=== PATIENT | male | born 1990 | race African-American/Black ===

== ENCOUNTER 2022-09-29 22:08 | Outpatient (CLI) | payer SELFPAY | END 2022-09-29 23:59 | disposition EMS.NT | LOC: EMS 22:08 | DX: R56.9 Unspecified convulsions (principal) ==

== ENCOUNTER 2023-11-29 00:19 | Outpatient (CLI) | payer SELFPAY | END 2023-11-29 23:59 | disposition EMS.NT | LOC: EMS 00:19 | DX: R56.9 Unspecified convulsions (principal); Z91.138 Patient's unintentional underdosing of medication regimen for other reason ==

== ENCOUNTER 2025-04-16 15:59 | Observation (INO) ==
--- OUTSIDE RECORDS SUMMARY | 2025-04-16 17:01 | EXTERNAL MEDICAL SUMMARY RPT | Continuity of Care Document ---
Author Organization [facility] Address [address] [place] [id number] Phone Care Team Providers Care Community Advocate Name Role Phone Unavailable Unavailable [email or web address] Ashish Lomas Unavailable Unavailable Allergies and Intolerances date description facility reaction severity 2023-10-15 10:00 No Known Drug Allergies [facility] ( no reaction) (no severity) Problems date description facility 2025-02-22 00:00 Atypical chest pain [facility] 2025-02-22 14:45 Epilepsy, unspecifie d, not intractable, without status epile [facility] Procedures date description facility 2025-02-22 00:00 X-ray of chest, single [facility] Results/Labs test date facility value unit notes Result panel 1 White blood cell count 2025-02-22 15:15:07 [facility] 3 .4 X10^3/uL (missing) Result panel 2 Automated neutrophil % 2025-02-22 15:15:07 [facility] 5 3.5 % (missing) Result panel 3 Automated lymphocyte % 2025-02-22 15:15:07 [facility] 3 7.9 % (missing) Result panel 4 Automated monocyte % 2025-02-22 15:15:07 [facility] 7.2 % (missing) Result panel 5 Automated eosinophil % 2025-02-22 15:15:07 [facility] 0 .5 % (missing) Result panel 6 Automated basophil % 2025-02-22 15:15:07 [facility] 0.9 % (missing) Result panel 7 Absolute neutrophil count 2025-02-22 15:15:07 [facility] l 1800 /uL (missing) Result panel 8 Absolute lymphocyte count 2025-02-22 15:15:07 [facility] l 1300 /uL (missing) Result panel 9 Automated blood monocyte count 2025-02-22 15:15:07 [facility] 200 /uL (missing) Result panel 10 Automated eosinophil count 2025-02-22 15:15:07 [facility] 0 /uL (missing) Result panel 11 Automated basophil count 2025-02-22 15:15:07 [facility] 0 /uL (missing) Result panel 12 Red blood cell count 2025-02-22 15:15:07 [facility] 5.5 8 X10^6/uL (missing) Result panel 13 Creatine kinase [Enzymatic activity/volume] in Serum or Plasma 2025-02-22 15:15:07 [facility] 619 U/L (miss ing) Result panel 14 Natriuretic peptide.B prohormone N-Terminal [Mass/volume] in Serum or Plasma 2025-02-22 15:15:07 [facility] < 20 pg/mL (missing) (missing) Result panel 15 Sodium [Moles/volume] in Serum or Plasma 2025-02-22 15:15:07 [facility] 135 mmol/L ([facility]) Result panel 16 Potassium [Moles/volume] in Serum or Plasma 2025-02-22 15:15:07 [facility] 4.0 mmol/L ([facility]) Result panel 17 Chloride [Moles/volume] in Serum or Plasma 2025-02-22 15:15:07 [facility] 99 mmol/L ([facility]) Result panel 18 Carbon dioxide, total [Moles/volume] in Serum or Plasma 2025-02-22 15:15:07 [facility] 28 mmol/L ([facility]) Result panel 19 Urea nitrogen [Mass/volume] in Serum or Plasma 2025-02-22 15:15:07 [facility] 10 mg/dL ([facility]) Result panel 20 Creatinine [Mass/volume] in Serum or Plasma 2025-02-22 15:15:07 [facility] 0.60 mg/dL ([facility]) Result panel 21 Glomerular filtration rate (GFR) estimation 2025-02-22 15:15:07 [facility] > 60 mL/min (missing) (missing) Result panel 22 Hemoglobin 2025-02-22 15:15:07 [facility] 15.4 g/d L (missing) Result panel 23 BUN/creatinine ratio 2025-02-22 15:15:07 [facility] 16. 7 (missing) (missing) Result panel 24 Glucose [Mass/volume] in Serum or Plasma 2025-02-22 15:15:07 [facility] 150 mg/dL ([facility]) Result panel 25 Calcium [Mass/volume] in Serum or Plasma 2025-02-22 15:15:07 [facility] 9.0 mg/dL [facility]) Result panel 26 Magnesium [Mass/volume] in Serum or Plasma 2025-02-22 15:15:07 [facility] 1.9 mg/dL ([facility]) Result panel 27 Bilirubin.total [Mass/volume ] in Serum or Plasma 2025-02-22 15:15:07 [facility] 0.4 mg/dL (missing) Result panel 28 Aspartate aminotransferase [Enzymatic activity/volume] in Serum or Plasma 2025-02-22 15:15:07 [facility] 62 IU/L ([facility]) Result panel 29 Alanine aminotransferase [Enzymatic activity/volume] in Serum or Plasma 2025-02-22 15:15:07 [facility] 75 IU/L ([facility]) Result panel 30 Alkaline phosphatase [Enzyma tic activity/volume] in Serum or Plasma 2025-02-22 15:15:07 [facility] 83 U/L (miss ing) Result panel 31 Protein total ser/plas 2025-02-22 15:15:07 [facility] 7 .7 g/dL (missing) Result panel 32 Albumin [Mass/volume] in Ser um or Plasma 2025-02-22 15:15:07 [facility] 4.8 g/dL (miss ing) Result panel 33 Hematocrit 2025-02-22 15:15:07 [facility] 45.7 % (missing) Result panel 34 Globulin [Mass/volume] in Serum by calculation 2025-02-22 15:15:07 [facility] 2.9 g/dL (missing) Result panel 35 Albumin/Globulin [Mass Ratio] in Serum or Plasma 2025-02-22 15:15:07 [facility] 1.7 (miss ing) (missing) Result panel 36 Lipase [Enzymatic activity/volume] in Serum or Plasma 2025-02-22 15:15:07 [facility] 38 U/L (miss ing) Result panel 37 MCV (mean corpuscular volume ) determination 2025-02-22 15:15:07 [facility] 81.9 fL (mis sing) Result panel 38 Mean corpuscular hemoglobin (MCH) determination 2025-02-22 15:15:07 [facility] 27.6 PG (missing) Result panel 39 Mean corpuscular hemoglobin concentration (MCHC) determination 2025-02-22 15:15:07 [facility] 33.7 % (mis sing) Result panel 40 Red cell distribution width determination 2025-02-22 15:15:07 [facility] 14.9 % (mis sing) Result panel 41 Platelet count 2025-02-22 15:15:07 [facility] 239 X10^3/uL (missing) Result panel 42 X-ray report 2025-02-22 15:21 [facility] (missing) (mis sing) (missing) Result panel 43 Basophils Absolute Auto 2025-02-22 15:44 [facility] 0 /ul (missing) Eosinophils Absolute Auto 2025-02-22 15:44 [facility] 0 /ul (missing) Eosinophils Percent Auto 2025-02-22 15:[address] [place] [address] 0. 5 % (missing) Basophils Percent Auto 2025-02-22 15:[address] [place] [address] 0.9 % (missing) Lymphocytes Absolute Auto 2025-02-22 15:[address] [place] [address] 1 300 /ul (missing) Red Cell Distribution Width 2025-02-22 15:[address] [place] [address] 14.9 % (missing) Hemoglobin 2025-02-22 15:[address] [place] [address] 15.4 g/dl (missing) Neutrophils Absolute Auto 2025-02-22 15:[address] [place] [address] 1 800 /ul (missing) Monocytes Absolute Auto 2025-02-22 15:[address] [place] [address] 200 /ul (missing) Platelet Count 2025-02-22 15:[address] [place] [address] 239 x1 0 3/ul (missing) Mean Corpuscular Hemoglobin 2025-02-22 15:[address] [place] [address] 27.6 pg (missing) White Blood Cell Count 2025-02-22 15:[address] [place] [address] 3.4 x10 3/ul (missing) Mean Corpuscular HGB Conc 2025-02-22 15:44 [facility] 3 3.7 % (missing) Lymphocytes Percent Auto 2025-02-22 15:[address] [place] [address] 37 .9 % (missing) Hematocrit 2025-02-22 15:[address] [place] [address] 45.7 % (missing) Red Blood Cell Count 2025-02-22 15:[address] [place] [address] 5.58 x10 6/ul (missing) Neutrophils Percent Auto 2025-02-22 15:[address] [place] [address] 53 .5 % (missing) Monocytes Percent Auto 2025-02-22 15:[address] [place] [address] 7.2 % (missing) Mean Corpuscular Volume 2025-02-22 15:44 [facility] 81. 9 fl (missing) Result panel 44 Estimated Glomerular Filt Rate 2025-02-22 15:55 [facility] > 60 ml/min Reported eGFR is based the CKD-EPI 2020 equation that does not use a race coefficient. An eGFR below 60 mL/min/1.73m2 suggests that some kidney damage has occurred, and indicative of chronic kidney disease if persisting greater than 3 months. An eGFR less than 15 is indicative of kidney failure. Bilirubin Total 2025-02-22 15:55 [facility] 0.4 mg/dl (missing) Creatinine 2025-02-22 15:55 [facility] 0.60 mg/dl (missing) Albumin Globulin Ratio 2025-02-22 15:55 [facility] 1.7 (missing) (missing) Magnesium 2025-02-22 15:55 [facility] 1.9 mg/dl Physician Instructions if pt has history of CHF Blood Urea Nitrogen 2025-02-22 15:55 [facility] 10 mg/dl (missing) Sodium 2025-02-22 15:55 [facility] 135 mmol/l Physician Instructions if pt has history of CHF Glucose 2025-02-22 15:55 [facility] 150 mg/dl (missing) BUN Creatinine Ratio 2025-02-22 15:55 [facility] 16.7 (missing) (missing) Globulin 2025-02-22 15:55 [facility] 2.9 g/dl (missing) Carbon Dioxide 2025-02-22 15:55 [facility] 28 mmol/l (missing) Lipase 2025-02-22 15:55 [facility] 38 u/l Physician Instructions if pt has history of CHF Potassium 2025-02-22 15:55 [facility] 4.0 mmol/l (missing) Albumin 2025-02-22 15:55 [facility] 4.8 g/dl (missing) Creatine Kinase 2025-02-22 15:55 [facility] 619 u/l Physician Instructions if pt has history of CHF Aspartate Aminotransferase 2025-02-22 15:55 [facility] 62 iu/l (missing) Total Protein 2025-02-22 15:55 [facility] 7.7 g/dl (missing) Alanine Aminotransferase 2025-02-22 15:55 [facility] 75 iu/l (missing) Alkaline Phosphatase 2025-02-22 15:55 [facility] 83 u/l (missing) Calcium 2025-02-22 15:55 [facility] 9.0 mg/dl (missing) Chloride 2025-02-22 15:55 [facility] 99 mmol/l (missing) Result panel 45 Estimated Glomerular Filt Rate 2025-02-22 16:[address] [place] [address] > 60 ml/min Reported eGFR is based the CKD-EPI 2020 equation that does not use a race coefficient. An eGFR below 60 mL/min/1.73m2 suggests that some kidney damage has occurred, and indicative of chronic kidney disease if persisting greater than 3 months. An eGFR less than 15 is indicative of kidney failure. Troponin I 2025-02-22 16:[address] [place] [address] < 0.012 ng/ml Ortho Troponin-I Recommended Upper Reference Range & Cutoff The 99th Percentile URL: 0.034 ng/mL AMI Diagnostic Cutoff: 0.120 ng/mL NT-proBNP (BNP-Adult 18+) 2025-02-22 16:[address] [place] [address] < 20 pg/ml Physician Instructions if pt has history of CHF The following cut-points have been suggested for the use of proBNP for the diagnostic evaluation of heart failure (HF) in patients with acute dyspnea: Modality Age in Years Optimal Cut-Off -------- Heart Failure Unlikely: Exclusion Age Independent 300 pg/mL Heart Failure Likely: Diagnostic <50 450 pg/mL 50-75 900 pg/mL >75 1800 pg/mL The 300 pg/mL age-independent rule-out cutoff can be used to identify ED patients in whom HF (heart failuire) is unlikely and who need further investigations for non-cardiac causes of dyspnea. The natriuretic peptides values increase with age, therefore, applying age-dependent rule-in cutoffs (450, 900, and 1800 pg/mL) increases the specificity and positive predictive value for diagnosing patients in whom HF is likely. As mild natriuretic peptides elevations can be caused by non-HF conditions, VITROS NT-proBNP II test results between the exclusion and the diagnosis cutoffs should be considered in the context of the clinical presentation and physical examination in order to correctly identify or exclude HF. Bilirubin Total 2025-02-22 16:[address] [place] [address] 0.4 mg/dl (missing) Creatinine 2025-02-[address] [place] [address] 0.60 mg/dl (missing) Albumin Globulin Ratio 2025-02-22 16:[address] [place] [address] 1.7 (missing) (missing) Magnesium 2025-02-22 16:[address] [place] [address] 1.9 mg/dl Physician Instructions if pt has history of CHF Blood Urea Nitrogen 2025-02-22 16:[address] [place] [address] 10 mg/dl (missing) Sodium 2025-02-22 16:[address] [place] [address] 135 mmol/l Physician Instructions if pt has history of CHF Glucose 2025-02-22 16:[address] [place] [address] 150 mg/dl (missing) BUN Creatinine Ratio 2025-02-22 16:[address] [place] [address] 16.7 (missing) (missing) Globulin 2025-02-22 16:[address] [place] [address] 2.9 g/dl (missing) Carbon Dioxide 2025-02-22 16:[address] [place] [address] 28 mmol/l (missing) Lipase 2025-02-22 :[address] [place] [address] 38 u/l Physician Instructions if pt has history of CHF Potassium 2025-02-22 16:[address] [place] [address] 4.0 mmol/l (missing) Albumin 2025-02-22 16:[address] [place] [address] 4.8 g/dl (missing) Creatine Kinase 2025-02-22 16:[address] [place] [address] 619 u/l Physician Instructions if pt has history of CHF Aspartate Aminotransferase 2025-02-22 16:[address] [place] [address] 62 iu/l (missing) Total Protein 2025-02-22 16:[address] [place] [address] 7.7 g/dl (missing) Alanine Aminotransferase 2025-02-22 16:[address] [place] [address] 75 iu/l (missing) Alkaline Phosphatase 2025-02-22 16:[address] [place] [address] 83 u/l (missing) Calcium 2025-02-22 16:[address] [place] [address] 9.0 mg/dl (missing) Chloride 2025-02-22 16:[address] [place] [address] 99 mmol/l (missing) Result panel 46 Troponin I.cardiac [Mass/volume] in Serum or Plasma 2025-02-22 19:50:07 [facility] < 0.012 ng/mL (missing) (missing) Result panel 47 Troponin I 2025-02-22 20:24 [facility] < 0.012 ng/ml Ortho Troponin-I Recommended Upper Reference Range & Cutoff The 99th Percentile URL: 0.034 ng/mL AMI Diagnostic Cutoff: 0.120 ng/mL Social History date description facility 2025-02-22 00:00 Never smoked tobacco ([facility] Vital Signs date measurement value units 2025-02-22 00:00 BMI 35.5 kg/m2 2025-02-22 00:00 BP_diastolic 76 mmHg 2025-02-22 00:00 BP_systolic 136 mmHg 2025-02-22 00:00 heart_rate 70 /min 2025-02-22 00:00 height_metric 195.58 cm 2025-02-22 00:00 o2_saturation 98 % 2025-02-22 00:00 respiration_rate 16 /min 2025-02-22 00:00 temperature_standard 98.3 F 2025-02-22 00:00 weight_metric 136.07 kg
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
[2025-04-16 17:34] LABS: HCT - HEMATOCRIT 49.9 % (42.0-52.0); HGB - HEMOGLOBIN 16.7 g/dL (14.0-18.0); MEAN PLATELET VOLUME 8.9 fL (7.4-11.4); NRBC ABSOLUTE COUNT (AUTO) 0.00 x10^3/uL; NUCLEATED RED BLOOD CELLS AUTO 0.0 /100WBC; PLT - PLATELET COUNT 257 10^3/uL (130-450); RED CELL DISTRIBUTION WIDTH 13.2 % (12.0-15.0)
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
[2025-04-16 18:01] LABS: ALT ALANINE AMINOTRANSFERASE 43.0 IU/L (10-60); AST ASPARTATE AMINOTRANSFERASE 25.0 IU/L (10-42); BUN - BLOOD UREA NITROGEN 8.0 mg/dL (6-20); CARBON DIOXIDE - CO2 33.0 mmol/L (21-32); CREATININE 0.7 mg/dL (0.6-1.3); GFR - MDRD 156.0 (>89)
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
[2025-04-16] MEDS: SODIUM CHLORIDE 0.9% 1,000 ML IV STA ×2 (18:59→19:54)
[2025-04-17] MEDS: SODIUM CHLORIDE FLUSH 0.9% 10 ML SYRINGE IVP SCH (00:14)
[2025-04-17 00:19] VITALS: O2SAT 95
[2025-04-17] MEDS: ACETAMINOPHEN 325 MG TABLET PO PRN (02:43)
[2025-04-17] MEDS: SODIUM CHLORIDE 0.9% 1,000 ML IV SCH (03:40)
[2025-04-17] MEDS: SODIUM CHLORIDE FLUSH 0.9% 10 ML SYRINGE IVP PRN (03:40)
[2025-04-17] MEDS: IBUPROFEN 400 MG TABLET PO ONE (04:31)
[2025-04-17 05:45] LABS: HCT - HEMATOCRIT 43.8 % (42.0-52.0); HGB - HEMOGLOBIN 14.7 g/dL (14.0-18.0); MEAN PLATELET VOLUME 9.2 fL (7.4-11.4); PLT - PLATELET COUNT 221.0 10^3/uL (130-450); RED CELL DISTRIBUTION WIDTH 13.2 % (12.0-15.0)
[2025-04-17 06:05] LABS: BUN - BLOOD UREA NITROGEN 10.0 mg/dL (6-20); CARBON DIOXIDE - CO2 27.0 mmol/L (21-32); CREATININE 0.7 mg/dL (0.6-1.3); GFR - MDRD 156.0 (>89)
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
--- NOTE | 2025-04-17 11:40 | PHARMACY PROGRESS NOTE ---
Best Possible Medication History Admit Date and Time: 04/16/25 1818 Home Medications Medication Instructions Recorded Confirmed Type levetiracetam 1,000 mg tablet 1,000 mg PO BID 04/17/25 04/17/25 History phenytoin sodium extended 100 mg 400 mg PO BID 5 04/17/25 History capsule Processed by: Pharmacy Medications reviewed in ED?: Yes Medication History completed: Yes Patient Interview: Completed Secondary Source(s): Insurance records [facility] Statement: As the person ultimately responsible for medication therapy, providers are able to order a medication from an existing home medication list in [facility] via the "Reconcile Routine" prior to Confirmation of that medication by support architect. Such practice is discouraged except when the physician, in their clinical judgment, deems that a medical need exists for a medication without regard to previous use.
[2025-04-17 16:17] VITALS: BP 150/107; TEMP 97.7
== END 2025-04-17 16:37 | disposition home health service (06) ==
LOC: ED 15:59 → MS2 15:59
PROVIDERS: ADMIT Internal Medicine; ATTEND Internal Medicine
DX: R41.0 Disorientation, unspecified; R11.2 Nausea with vomiting, unspecified; V49.88XA Car occupant (driver) (passenger) injured in other specified transport accidents, initial encounter; T42.0X1A Poisoning by hydantoin derivatives, accidental (unintentional), initial encounter; G40.909 Epilepsy, unspecified, not intractable, without status epilepticus; I51.7 Cardiomegaly; R51.9 Headache, unspecified